=== PATIENT | female | born 1990 | race African-American/Black ===

== ENCOUNTER 2018-02-20 16:02 | Inpatient (IN) ==
[2018-02-20] MEDS ORDERED: BUTORPHANOL 2 MG/ML VIAL IV PRN (16:27)
[2018-02-20] MEDS ORDERED: MEPERIDINE 50 MG/1 ML VIAL IV PRN (16:27)
[2018-02-20] MEDS ORDERED: ONDANSETRON 4 MG/2 ML VIAL IV PRN (16:27)
[2018-02-20] MEDS ORDERED: LACTATED RINGERS 1,000 ML IV SCH (16:30)
[2018-02-20] MEDS ORDERED: OXYTOCIN/LR 20 UNIT/1,000 ML BAG IV SCH (16:30)
[2018-02-20] MEDS ORDERED: ePHEDrine 50 MG/ML AMP IV PRN (16:34)
[2018-02-20] MEDS ORDERED: LACTATED RINGERS 1,000 ML IV ONE (16:34)
[2018-02-20] MEDS ORDERED: hydrOXYzine HCL 25 MG/1 ML VIAL IM PRN (16:34)
[2018-02-20] MEDS ORDERED: CITRIC ACID/SODIUM CITRATE 30 ML UDCUP PO ONE (16:34)
[2018-02-20] MEDS ORDERED: diphenhydrAMINE 50 MG/1 ML VIAL IV PRN ×2 (16:34)
[2018-02-20] MEDS ORDERED: FAMOTIDINE 20 MG/2 ML VIAL IV ONE (16:34)
[2018-02-20] MEDS ORDERED: ONDANSETRON 4 MG/2 ML VIAL IV ONE (16:34)
[2018-02-20] MEDS ORDERED: PROMETHAZINE 25 MG/1 ML VIAL IM ONE (16:34)
[2018-02-20] MEDS ORDERED: fentaNYL 2 MCG/ROPIV 0.2% EPID 150 ML EPIDURAL SCH (17:00)
[2018-02-20 17:20] LABS: Basophils % 0.2 % (0.0-0.8); Eosinophils # 0.1 10*3/uL (0.0-0.87); Eosinophils % 0.9 % (0.00-10.9); Hemoglobin 9.9 GM/DL (12.0-16.0); Immature Granulocytes % 2.7 %; Immature Granulocytes Absolute 0.22 #; Lymphocytes # 1.3 10*3/uL (1.4-4.0); Lymphocytes % 15.7 % (21.3-54.2); Mean Corpuscular HGB Conc 35.4 GM/DL (32-36); Mean Corpuscular Hemoglobin 28 PG (27-34); Mean Corpuscular Volume 78.9 FL (87-102); Mean Platelet Volume 9.4 FL (9.6-12.0); Monocytes # 0.9 10*3/uL (0.11-0.8); Monocytes % 11.3 % (1.7-12.7); NRBC # 0.02 10*3/uL; Neutrophils # 5.6 10*3/uL (1.4-7.4); Neutrophils % 69.2 % (38.7-73.9); Platelet Count 140 T/CUMM (130-400); Red Blood Count 3.55 MC/CUMM (3.8-5.5); Red Cell Distribution Width 17.2 % (9.3-17.3)
[2018-02-20] MEDS ORDERED: CARBOPROST TROMETHAMINE 250 MCG/ML AMP IM ONE ×2 (19:15→19:16)
[2018-02-20 19:28] LABS: Barbiturates Screen,Urine Negative (Negative); Benzodiazepines Screen,Urine Negative (Negative); Cannabinoid Screen,Urine Negative (Negative); Opiate Screen,Urine Negative (Negative); Phencyclidine Screen,Urine Negative (Negative)
[2018-02-20 19:30] LABS: Apearance,Urine Slightly Hazy (Clear); Bacteria,Urine Few /HPF (Few); Bilirubin,Urine Negative (Negative); Blood, Urine Moderate mg/dL (Negative); Glucose,Urine (UA) Negative (Negative); Ketones,Urine Negative (Negative); Mucus,Urine Occasional /LPF (Occasional); Nitrite,Urine Negative (Negative); Protein,Urine Negative; RBC,Urine 2 /HPF (0-4); Squamous Epithelial Cell,Urine Few /HPF (0-10); Urine Color Yellow (Yellow); Urine Specific Gravity 1.008 (1.001-1.035); WBC,Urine 6 /HPF (0-6)
[2018-02-20] MEDS ORDERED: DIPH/TET/ACEL PERT BOOSTER VACCINE 0.5 ML VIAL IM ONE (19:37)
[2018-02-20] MEDS ORDERED: oxyCODONE/ACETAMINOPHEN 5-325 MG TABLET PO PRN (19:37)
[2018-02-20] MEDS ORDERED: RHO(D) IMMUNE GLOBULIN 300 MCG SYRINGE IM ONE (19:37)
[2018-02-20] MEDS ORDERED: OXYTOCIN/LR 20 UNIT/1,000 ML BAG IV ONE (19:37)
[2018-02-20] MEDS ORDERED: MEASLES/MUMPS/RUBELLA VACCINE 0.5 ML VIAL SUBCUT ONE (19:37)
[2018-02-20] MEDS ORDERED: HYDROCORTISONE 2.5% RECTAL CREAM 30 GM TUBE TOP PRN (19:37)
[2018-02-20] MEDS ORDERED: WITCH HAZEL PADS 100/JAR TOP PRN (19:37)
[2018-02-20] MEDS ORDERED: LANOLIN 50% CREAM 0.3 OZ TUBE TOP PRN (19:37)
[2018-02-20] MEDS ORDERED: ACETAMINOPHEN 325 MG TABLET PO PRN (19:37)
[2018-02-20] MEDS ORDERED: BENZOCAINE 20%/MENTHOL 0.5% SPRAY 56 GM CAN TOP PRN ×2 (19:37→22:24)
[2018-02-20] MEDS ORDERED: BISACODYL 10 MG SUPP RECTAL PRN (19:37)
[2018-02-20] MEDS: DOCUSATE SODIUM 100 MG CAPSULE PO SCH (22:32)
[2018-02-20] MEDS: FERROUS SULFATE 325 MG TABLET PO SCH (22:33)
[2018-02-20] MEDS: IBUPROFEN 800 MG TABLET PO PRN (22:48)
[2018-02-21] MEDS: oxyCODONE/ACETAMINOPHEN 5-325 MG TABLET PO PRN ×3 (01:15→23:28)
[2018-02-21 07:09] LABS: Basophils % 0.3 % (0.0-0.8); Eosinophils # 0.1 10*3/uL (0.0-0.87); Eosinophils % 0.8 % (0.00-10.9); Hemoglobin 9.8 GM/DL (12.0-16.0); Lymphocytes # 1.3 10*3/uL (1.4-4.0); Lymphocytes % 13.1 % (21.3-54.2); Mean Corpuscular HGB Conc 36.3 GM/DL (32-36); Mean Corpuscular Hemoglobin 29 PG (27-34); Mean Corpuscular Volume 78.7 FL (87-102); Mean Platelet Volume 9.5 FL (9.6-12.0); Monocytes % 9.8 % (1.7-12.7); NRBC # 0.03 10*3/uL; Neutrophils # 7.6 10*3/uL (1.4-7.4); Platelet Count 131 T/CUMM (130-400); Red Blood Count 3.43 MC/CUMM (3.8-5.5); Red Cell Distribution Width 17.3 % (9.3-17.3); White Blood Count 10.2 T/CUMM (4-12)
[2018-02-21] MEDS ORDERED: valACYclovir 500 MG TABLET PO SCH (09:00)
[2018-02-21] MEDS: FERROUS SULFATE 325 MG TABLET PO SCH ×3 (09:22→21:52)
[2018-02-21] MEDS: valACYclovir 500 MG TABLET PO SCH (09:22)
[2018-02-21] MEDS: DOCUSATE SODIUM 100 MG CAPSULE PO SCH ×2 (09:25→21:52)
[2018-02-21] MEDS: IBUPROFEN 800 MG TABLET PO PRN (14:47)
[2018-02-22 07:20] VITALS: BP 114/64
[2018-02-22] MEDS: valACYclovir 500 MG TABLET PO SCH (09:48)
[2018-02-22] MEDS: FERROUS SULFATE 325 MG TABLET PO SCH (09:49)
[2018-02-22] MEDS: DOCUSATE SODIUM 100 MG CAPSULE PO SCH (09:50)
[2018-02-22] MEDS: IBUPROFEN 800 MG TABLET PO PRN (11:48)
== END 2018-02-22 14:15 | disposition home or self-care (01) | DRG 560 ==
LOC: N.LDOUT 16:02 → N.LD 16:05 → N.OB 21:40
PROVIDERS: ADMIT Obstetrics & Gynecology; ATTEND Obstetrics & Gynecology